=== PATIENT | male | born 1965 | race Caucasian/White ===

== ENCOUNTER 2020-07-09 01:29 | Emergency (ER) | payer MEDICAID ==
[~2020-07-09] VITALS: Ht 170.2 cm; Wt 92.8 kg
[2020-07-09 01:39] VITALS: Ht 170.2 cm; Wt 92.8 kg
[2020-07-09] MEDS ORDERED: [UNRECOGNIZED DRUG - OTHER] TOP (03:10)
[2020-07-09 03:40] VITALS: BP 145/86
== END 2020-07-09 03:40 | disposition home or self-care (01) ==
LOC: ED 01:29
DX: A51.49 Other secondary syphilitic conditions (principal)
CPT/HCPCS: J0561

== ENCOUNTER 2020-07-15 01:53 | Emergency (ER) | payer MEDICAID ==
[~2020-07-15] VITALS: Ht 167.6 cm; Wt 91.6 kg
[~2020-07-15 01:53] MED LIST: [UNRECOGNIZED DRUG - OTHER] TOP
[2020-07-15 02:00] VITALS: Ht 167.6 cm; Wt 91.6 kg
[2020-07-15] MEDS ORDERED: ELIMITE5% TOP (02:18)
[2020-07-15 02:32] VITALS: BP 125/76
== END 2020-07-15 02:32 | disposition home or self-care (01) ==
LOC: ED 01:53
DX: B86 Scabies (principal); F17.210 Nicotine dependence, cigarettes, uncomplicated

== ENCOUNTER 2020-07-19 13:08 | Emergency (ER) | payer MEDICAID ==
[~2020-07-19] VITALS: Ht 167.6 cm; Wt 89.8 kg
[~2020-07-19 13:08] MED LIST changes: +ELIMITE5% TOP
[2020-07-19 15:00] LABS: microscopic required? NO
[2020-07-19 15:07] LABS: UA SPECIFIC GRAVITY <=1.005 (1.005-1.035); urine erythrocyte NEGATIVE (NEGATIVE)
[2020-07-19] MEDS ORDERED: ALBENZA200 M1 PO (15:38)
[2020-07-19] MEDS ORDERED: MORGIDOX 1X100100 MG PO (15:39)
[2020-07-19 16:00] VITALS: BP 128/76
== END 2020-07-19 16:00 | disposition home or self-care (01) ==
LOC: ED 13:08
PROVIDERS: Emergency Medicine
DX: R21 Rash and other nonspecific skin eruption (principal)
CPT/HCPCS: 87491; 87591; J0696

== ENCOUNTER 2020-07-20 22:15 | Emergency (ER) | payer MEDICAID ==
[~2020-07-20] VITALS: Ht 170.2 cm; Wt 89.1 kg
[~2020-07-20 22:15] MED LIST changes: +ALBENZA200 M1 PO; +MORGIDOX 1X100100 MG PO
[2020-07-20 22:29] VITALS: BP 128/84
== END 2020-07-21 01:08 | disposition home or self-care (01) ==
LOC: ED 22:15
DX: Z53.21 Procedure and treatment not carried out due to patient leaving prior to being seen by health care provider (principal)